=== PATIENT | male | born 2000 | race Caucasian/White ===

== ENCOUNTER 2025-08-28 06:49 | Day surgery (SDC) | payer OTHER ==
[~2025-08-28] VITALS: Ht 167.6 cm; Wt 68.7 kg
[2025-08-28] MEDS ORDERED: LR 1,000 ML IV SCH ×2 (07:10→09:30)
[2025-08-28] MEDS ORDERED: ROPIvacaine 0.5% 30ML VIAL PN ONE (08:00)
[2025-08-28] MEDS ORDERED: MIDAZOLAM INJ 2 MG/2 ML VIAL IV PRN (08:00)
[2025-08-28] MEDS: ceFAZolin SOD 2 GM IV ONCE IV ONE (08:38)
[2025-08-28] MEDS: dexAMETHasone 10 MG/1 ML VIAL PRES.FREE PN ONE (08:42)
[2025-08-28] MEDS ORDERED: dexmedeTOMIDine (4 MCG/ML) 200 MCG/50 ML BTL As Ordered ONE (08:43)
[2025-08-28] MEDS ORDERED: ONDANSETRON 4MG/2ML VIAL As Ordered ONE (08:43)
[2025-08-28] MEDS ORDERED: LIDOCAINE 2% 100 MG/5 ML SDV (FOR ANES.) As Ordered ONE (08:43)
[2025-08-28] MEDS ORDERED: dexAMETHasone 4 MG/ML 1 ML VIAL As Ordered ONE (08:43)
[2025-08-28] MEDS ORDERED: MIDAZOLAM INJ 2 MG/2 ML VIAL As Ordered ONE (08:43)
[2025-08-28] MEDS: TRANEXAMIC ACID 100 MG/ML 10ML VIAL IV ONE (08:44)
[2025-08-28] MEDS ORDERED: ACETAMINOPHEN 1000MG/100ML IV BAG As Ordered ONE (08:49)
[2025-08-28] MEDS: TRANEXAMIC ACID 100 MG/ML 10ML VIAL As Ordered ONE (08:54)
[2025-08-28] MEDS ORDERED: KETOROLAC 30 MG/ML 1 ML VIAL As Ordered ONE (09:03)
[2025-08-28] MEDS ORDERED: ONDANSETRON 4MG/2ML VIAL IV PRN (09:30)
[2025-08-28] MEDS ORDERED: HYDROMORPHONE HCL 0.5 MG/0.5 ML SYRINGE IV PRN (09:30)
[2025-08-28 11:18] VITALS: BP 108/70; TEMP 96.4; O2SAT 99
== END 2025-08-28 11:28 | disposition home or self-care (01) ==
LOC: M SDC 06:49
PROVIDERS: ATTEND Student in an Organized Health Care Education/Training Program
DX: M67.432 Ganglion, left wrist (principal)
CPT/HCPCS: 25111; 88305; J0131; J0665; J0688; J1100; J1885; J2250; J2405; J3010

== ENCOUNTER 2025-09-03 17:56 | Emergency (ER) | payer OTHER ==
[~2025-09-03] VITALS: Ht 167.6 cm; Wt 68.8 kg
[2025-09-03 19:47] VITALS: BP 122/82; TEMP 98; O2SAT 99
== END 2025-09-03 19:49 | disposition home or self-care (01) ==
LOC: M ED 17:56
DX: G89.18 Other acute postprocedural pain (principal); R22.32 Localized swelling, mass and lump, left upper limb